=== PATIENT | male | born 1980 | race Caucasian/White ===

== ENCOUNTER → 2020-09-10 12:02 | Outpatient (BNVA) | payer OTHER, SELFPAY | PROVIDERS: Visit Provider Internal Medicine Gastroenterology | DX: Z76.89 Persons encountering health services in other specified circumstances (principal) ==

== ENCOUNTER 2020-11-30 10:15 | Outpatient (REF) | payer OTHER, SELFPAY ==
[2020-11-30 11:28] LABS: MANUAL DIFF FLAG NO
[2020-11-30 11:50] LABS: Basophils Percent Auto 0.5 % (0-2); Eosinophils Absolute Auto 0.1 X10*3/uL (0.0-0.4); Hematocrit 44.2 % (42-52); Hemoglobin 15.2 g/dl (14.0-18.0); Imm Gran Abs Auto 0.01 X10*3/uL (0.00-0.03); Imm Gran Pct Auto 0.2 % (0.0-0.4); Lymphocytes Absolute Auto 1.7 X10*3/uL (1.2-4.9); Lymphocytes Percent Auto 27.5 % (20-40); Mean Corpuscular HGB Conc 34.4 g/dl (31.0-36.0); Mean Corpuscular Volume 96.1 fL (80-98); Mean Platelet Volume 9.3 fL (9.4-12.4); Monocytes Absolute Auto 0.6 X10*3/uL (0.1-1.2); Monocytes Percent Auto 9.3 % (2-11); Neutrophils Absolute Auto 3.7 X10*3/uL (2.0-8.3); Neutrophils Percent Auto 61.5 % (45-73); Platelet Count 248 X10*3/uL (160-400); Red Cell Distribution Width 11.1 % (11.0-16.0)
[2020-11-30 12:14] LABS: Alanine Aminotransferase 20 U/L (0-40); Albumin Level 4.6 g/dL (3.5-5.0); Alkaline Phosphatase 63 U/L (39-117); Anion Gap 11 (12-20); Aspartate Amino Transferase 22 U/L (5-37); Bilirubin Total 0.6 mg/dL (0.0-1.0); Blood Urea Nitrogen 21 mg/dL (9-16); C Reactive Protein 0.12 mg/dL (< or = 0.50); Calcium 9.6 mg/dL (8.4-10.2); Carbon Dioxide 28 mmol/L (22-29); Chloride 107 mmol/L (96-108); Estimated Glomerular Filt Rate > 60; Glucose Random 93 mg/dL (60-115); Potassium 4.5 mmol/L (3.3-5.1); Sodium 141 mmol/L (135-145); Total Protein 7.9 g/dL (6.5-8.0)
[2020-11-30 12:36] LABS: Ferritin 215 ng/mL (20-250); TSH reflex Free T4 1.23 uIU/mL (0.32-4.0)
[2020-11-30 18:44] LABS: Folate 16.2 ng/mL (> or = 4.0); Vitamin B12 628 pg/mL (200-900)
[2020-12-01 11:37] LABS: IgA 505 mg/dL (47-310); IgG 1709 mg/dL (600-1640); IgM 114 mg/dL (50-300)
[2020-12-02 14:17] LABS: Zinc 72 mcg/dL (60-130)
[2020-12-04 18:23] LABS: Histamine Plasma <1.5 ng/mL (< OR = 1.8)
== END 2020-11-30 10:16 | disposition home or self-care (01) ==
LOC: HO.LAB 10:15
PROVIDERS: PCP Internal Medicine; Visit Provider Internal Medicine Gastroenterology
DX: K21.9 Gastro-esophageal reflux disease without esophagitis (principal); R10.11 Right upper quadrant pain; Z79.899 Other long term (current) drug therapy
CPT/HCPCS: 36415; 80053; 82607; 82728; 82746; 82784; 82785; 83088; 83520; 84443; 84630; 85025; 86003; 86140

== ENCOUNTER 2020-12-17 08:42 | Outpatient (REF) | payer OTHER, SELFPAY ==
--- NOTE | ~2020-12-17 | US_ITS ---
EXAMINATION: US COMPLETE ABDOMEN WITH LIVER ELASTOGRAPHY CLINICAL INFORMATION: Gastroesophageal reflux without esophagitis. COMPARISON: None. TECHNIQUE: Real-time imaging of the abdominal viscera. Noninvasive ultrasound liver fibrosis assessment is performed using Jun ElastPQ point quantification shear wave elastography (pSWE) with a C5-2 MHz transducer. Multiple elastography samples are obtained. FINDINGS: PANCREAS: Visualized portions unremarkable. ABDOMINAL AORTA: Visualized portions unremarkable. INFERIOR VENA CAVA: Visualized portions unremarkable. LIVER: Homogeneous echotexture without focal abnormality. The right lobe measures 14.2 cm in length. The left lobe measures 10.5 cm in length. Portal flow is hepatopedal Shear wave liver elastography median stiffness is 1.30 m/s (reference: normal median stiffness is 1.3 m/s or less). IQR/median stiffness to assess sampling precision is 0.14 (reference: good quality data set is IQR/median stiffness of 0.15 or less). GALLBLADDER: Unremarkable. COMMON BILE DUCT: 0.4 cm. Unremarkable. RIGHT KIDNEY: 11.9 cm. Unremarkable. LEFT KIDNEY: 11.8 cm. Unremarkable. SPLEEN: 11.0 cm. Unremarkable. FREE FLUID: None. US/US abdomen comp w elastography IMPRESSION: 1. No significant intra-abdominal abnormality. 2. Liver elastography: 1.3 m/s REFERENCE: Society of Radiologists in Ultrasound Liver Stiffness Thresholds (2020): LIVER STIFFNESS THRESHOLDS: *Liver Stiffness equal or less than 1.3 m/s: High probability of being normal. *Liver Stiffness less than 1.7 m/s: In the absence of other known clinical signs, rules out compensated advanced chronic liver disease. *Liver Stiffness 1.7-2.1 m/s: Suggestive of compensated advanced chronic liver disease but need further test for confirmation. *Liver Stiffness over 2.1 m/s: Rules in compensated advanced chronic liver disease. *Liver Stiffness over 2.4 m/s: Suggestive of clinically significant portal hypertension. QUALITY OF DATA SET: *IQR/Median value equal or less than 0.15 implies a quality data set. *IQR/Median value over 0.15 implies a poor quality data set. SIGNIFICANT CHANGE FROM PRIOR EXAM: Significant change if liver stiffness measurement is 10% or greater from prior exam. OTHER CONSIDERATIONS: The stage of liver fibrosis may be overestimated in the setting of acute hepatitis, liver inflammation, elevated liver function tests, hepatic vascular congestion, obstructive cholestasis, non-fasting state, and infiltrative diseases such as amyloidosis and lymphoma. In some patients with NAFLD, the liver stiffness thresholds for compensated advanced chronic liver disease may be lower. In causes other than viral hepatitis and NAFLD, liver stiffness thresholds are not well established.
[2020-12-17 11:06] LABS: Erythrocyte Sedimentation Rate 7 MM/HR (0-15)
[2020-12-18 14:12] LABS: IgA 525 mg/dL (47-310); IgG 1727 mg/dL (600-1640); IgM 115 mg/dL (50-300)
[2020-12-21 15:02] LABS: Prot Elec - Albumin 4.3 g/dL (3.8-4.8); Prot Elec - Alpha1 0.2 g/dL (0.2-0.3); Prot Elec - Alpha2 0.6 g/dL (0.5-0.9); Prot Elec - Beta 1 0.5 g/dL (0.4-0.6); Prot Elec - Beta 2 0.5 g/dL (0.2-0.5); Prot Elec - Gamma 1.6 g/dL (0.8-1.7); Prot Elec - Total Protein 7.7 g/dL (6.1-8.1)
[2020-12-22 11:31] LABS: PEU-Protein Creat Ratio Rand 0.034 (0.022-0.128); PEU-Rand. Prot/Creat Ratio 34 mg/g creat (22-128); PEU-Random Ur. Gamma Globulin 0 %; PEU-Random Urine A1 Globulin 0 %; PEU-Random Urine A2 Globulin 0 %; PEU-Random Urine Albumin 100 %; PEU-Random Urine Beta Globulin 0 %; PEU-Random Urine Creatinine 174 mg/dL (20-320); PEU-Random Urine Protein 6 mg/dL (5-25)
== END 2020-12-17 08:43 | disposition home or self-care (01) ==
LOC: HO.US 08:42
PROVIDERS: Visit Provider Internal Medicine Gastroenterology
DX: R10.11 Right upper quadrant pain (principal); K21.9 Gastro-esophageal reflux disease without esophagitis
CPT/HCPCS: 76705; 76981; 82570; 82784; 84155; 84156; 84165; 84166; 85652; 86003

== ENCOUNTER 2021-02-08 07:14 | Day surgery (SDC) | payer OTHER, SELFPAY ==
--- NOTE | 2021-02-04 14:08 | P.CONAN_ITS ---
Documented by User: Cassandra Church 02/04/21 14:09 HPI - Anesthesia Eval Consult details Narrative: 40yo M for Upper Endoscopy [facility] Active Problems Active Problems: All Active Problems (Updated 11/30/20 @ 10:51 by Mariely Chua MD) RUQ pain (Acute) HTN (hypertension) (Acute) Chronic GERD (Acute) Past Medical History Medical History Chronic GERD HTN (hypertension) Family History Family History Father HTN (hypertension) Diabetes Mother HTN (hypertension) Social History Social History Alcohol intake: current Alcohol intake frequency: does not drink Smoking Status: Never smoker Use of substances other than those prescribed or required for medical reasons: Yes Substance Use Frequency: Weekly Advance Directives: No Advance Directives Information Provided: Yes Meds Allergies Allergy/AdvReac Type Severity Reaction Status Date / Time NSAIDS (Non-Steroidal AdvReac Gastrointestinal Verified 02/08/21 07:50 Anti-Inflamma Upset Exam Exam Date and Time: February 04, 2021 1408 Assessment and Plan Assessment Anesthesia Assessment: Chart Reviewed Documented by User: Joan Cardoza 02/08/21 08:43 [facility] Past Medical History Medical History Chronic GERD HTN (hypertension) Family History Family History Father HTN (hypertension) Diabetes Mother HTN (hypertension) Social History Social History Alcohol intake: current Alcohol intake frequency: does not drink Smoking Status: Never smoker Use of substances other than those prescribed or required for medical reasons: Yes Substance Use Frequency: Weekly Advance Directives: No Advance Directives Information Provided: Yes Meds Allergies Allergy/AdvReac Type Severity Reaction Status Date / Time NSAIDS (Non-Steroidal AdvReac Gastrointestinal Verified 02/08/21 07:50 Anti-Inflamma Upset Exam Airway Mallampati Class: II TM Dist: >3cm Neck ROM: Full Loose/Missing/Broken Teeth: No Heart: RRR Lungs: CTA Assessment and Plan Assessment Anesthesia Assessment: Anesthesia Plan Discussed and Chart Reviewed Final Anesthetic Review NPO: Yes ASA Class: II Final Preanesthetic Review: Meds/Allgs Chart Reviewed, Consent Obtained/Reviewed and Anes Risks/Benef Reviewed Patient Risk: Low Procedure Risk: High Anesthetic Plan Anesthetic Plan: MAC: Disposition: Standard PACU
--- NOTE | 2021-02-08 07:37 | MHC.SHP ---
Pre-Procedural Eval Section B Chief Complaint: epigastric pain Relevant Family History (Specify if Yes): No Relevant Social History: None Present Medications: see Short Stay Collaborative assessment Medical History: Significant History (Chronic GERD HTN (hypertension)) History of Previous Operations: No relevant previous surgery Allergies: Allergies Allergy/AdvReac Type Severity Reaction Status Date / Time No Known Allergies Allergy Verified 11/30/20 10:26 Review of Systems Sugical H&P ROS: Negative: Constitution, Cardiovascular, Respiratory, Neurological, Psychiatric, Hem-Onc, Allergic/Immunologic, Gastrointestinal, Genitourinary, Musculoskeletal, Integumentary, Endocrine and Eyes/Ears/Nose/Throat Exam Surgical H&P Exam: Normal: HEENT, Normal: Heart, Normal: Lungs, Normal: Extremities, Normal: Abdomen, Normal: Skin and Normal: Neurological Plan Diagnosis/Plan: Unchanged I have reviewed the history and physical and performed a pertinent physical examination on my patient. No changes have occurred unless specified.
[2021-02-08] MEDS: Lactated Ringers 1,000 ML 100 ML IVCONT (07:40)
[2021-02-08 07:42] VITALS: BP 150/88; PULSE 58; RESP 16; TEMP 36.9; O2SAT 98; BMI 30.1
--- NOTE | 2021-02-08 08:42 | PM.OP ---
Brief Operative Note Date of Service: 02/08/21 Pre-op diagnosis: ruq-epigastric pain Post-op diagnosis: same Surgeon: Mariely Chua MD Estimated blood loss (mL): 0
--- NOTE | 2021-02-08 08:42 | W.PM.OPN ---
Operative Note Operative Note Date of Service: 02/08/21 Narrative: Procedure Description: EGD FLEXIBLE TRANSORAL UPPER GASTROINTESTINAL ENDOSCOPY UPPER ENDOSCOPY Consent: Indications for the procedure and potential complications of bleeding, perforation, reaction to medications and missed diagnosis were discussed with the patient and informed consent was obtained. Instrument: Olympus GIF H 190 J mid size upper endoscope Monitoring: Vital signs and clinical assessment, continuous EKG monitoring, Pulse oximetry, Carbon Dioxide monitoring and blood pressure monitoring were done throughout the procedure. Procedure: The patient was placed in the left lateral decubitis position and pre-procedure medications were administered and a bite block was placed. The endoscope was inserted into the mouth and advanced under direct vision to the third part of duodenum. A careful inspection was made as the upper endoscope was withdrawn including a retroflexed examination of the proximal stomach; Findings and interventions are described below. Findings: Larynx:normal Esophagus: GE junction at 38 cm, diaphragm hiatus at 38 cm, mild erythema and irregularity--bx taken Stomach: 3 polyps seen in distal body measured about 12 mm, could been fundic gland polyps but removed with cold snare. Biopsies were also obtained of gastric tissue. Grade 2 flap valve on retroflexed examination of the cardia. Duodenum: Normal bulb and descending duodenum, bx taken, ampulla also clearly seen and appeared normal with bile coming out. Intervention: Biopsies as noted above Impression/Findings: gastric polyps PLAN: await bx-- if neg then MRI-if neg then HIDA to r/o GB dyskinesia
[2021-02-08 09:10] VITALS: BP 99/51; PULSE 78; RESP 16; TEMP 36.3; O2SAT 94
[2021-02-08 09:31] VITALS: BP 117/81; PULSE 56; RESP 16; TEMP 36.3; O2SAT 98
== END 2021-02-08 10:24 | disposition home or self-care (01) ==
PROVIDERS: PCP Internal Medicine; Visit Provider Internal Medicine Gastroenterology
PROC: 0DJ08ZZ Inspection of Upper Intestinal Tract, Via Natural or Artificial Opening Endoscopic (ICD-10-PCS; CPT 43235; principal; 2021-02-08 08:30)
DX: R10.13 Epigastric pain (principal); R10.11 Right upper quadrant pain; K31.7 Polyp of stomach and duodenum; K21.9 Gastro-esophageal reflux disease without esophagitis; I10 Essential (primary) hypertension
CPT/HCPCS: 43239; 88305; 88342; J3010

== ENCOUNTER 2021-02-09 07:04 | Outpatient (REF) | payer OTHER, SELFPAY ==
--- NOTE | ~2021-02-09 | XR_ITS ---
EXAMINATION: PRE-MRI ORBITS CLINICAL INFORMATION: Pre-MRI screening. 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 COMPARISON: None TECHNIQUE: 3 views. FINDINGS: There is no radiopaque metallic foreign body seen in the orbits. Bilateral paranasal sinuses and mastoid air cells are well-aerated. No maxillofacial or nasal bone abnormality. XR/XR pre mri screening IMPRESSION: No radiopaque metallic foreign body seen in the orbits.
--- NOTE | ~2021-02-09 | MR_ITS ---
EXAMINATION: MR ABDOMEN WITHOUT CONTRAST CLINICAL INFORMATION: Right upper quadrant pain COMPARISON: None. TECHNIQUE: MR abdomen is performed without gadolinium contrast. MRCP sequences were also performed. FINDINGS: LUNG BASES: The visualized lung bases are unremarkable. LIVER, GALLBLADDER, AND BILIARY TREE: The liver is normal in size, smooth in contour, and normal in signal. No focal hepatic lesion or biliary ductal dilatation is present. The gallbladder is unremarkable with no evidence of gallstones, gallbladder wall thickening, or pericholecystic inflammatory changes. The common bile duct measures 0.3 cm. No common bile duct stone is seen. PANCREAS: Unremarkable. The main pancreatic duct is normal. SPLEEN: Unremarkable. ADRENAL GLANDS: Unremarkable. KIDNEYS AND URETERS: The kidneys are normal in size and shape. There are 2 small probable cysts in the upper pole the right kidney. No hydronephrosis. No perinephric stranding. GASTROINTESTINAL TRACT: No bowel obstruction. No ascites or fluid collection. ABDOMINAL WALL: No significant hernia is appreciated. LYMPH NODES: No lymphadenopathy. VASCULAR: Unremarkable. OSSEOUS STRUCTURES: Marrow signal normal. There is degenerative disc disease at L4-L5. MR/MR MRCP IMPRESSION: Probable small right renal cysts otherwise unremarkable exam.
== END 2021-02-09 07:05 | disposition home or self-care (01) ==
LOC: HO.MRI 07:04
PROVIDERS: Visit Provider Internal Medicine Gastroenterology
DX: R10.11 Right upper quadrant pain (principal)
CPT/HCPCS: 74181

== ENCOUNTER → 2021-02-25 10:26 | Outpatient (REF) | payer OTHER, SELFPAY ==
--- NOTE | ~2021-02-25 | NM_ITS ---
EXAMINATION: NM HIDA SCAN WITH CCK INDICATION: Right upper quadrant pain. COMPARISON: None TECHNIQUE: 5 mCi technetium mebrofenin and 2 mcg CCK. Imaging over the upper abdomen. FINDINGS: Uptake by the liver is within normal limits. Ductal activity by 8 minutes. Bowel activity by 19 minutes. Gallbladder activity by 12 minutes. Subsequent injection of CCK demonstrates an ejection fraction of 99%. NM/NM hepatobiliary w pharm IMPRESSION: Unremarkable study. Gallbladder ejection fraction is 99%. No scintigraphic evidence for gallbladder dyskinesis.
== END ==
LOC: HO.NUCMED 10:26
PROVIDERS: Visit Provider Internal Medicine Gastroenterology
DX: R10.11 Right upper quadrant pain (principal)
CPT/HCPCS: 78227; A9537; J2805

== ENCOUNTER 2021-03-11 10:43 | Outpatient (REF) | payer OTHER, SELFPAY ==
[2021-03-12 15:11] LABS: IgA 479 mg/dL (47-310); IgG 1577 mg/dL (600-1640); IgM 110 mg/dL (50-300)
== END 2021-03-11 10:44 | disposition home or self-care (01) ==
LOC: HO.LAB 10:43
PROVIDERS: Visit Provider Internal Medicine Gastroenterology
DX: R10.11 Right upper quadrant pain (principal); K21.9 Gastro-esophageal reflux disease without esophagitis
CPT/HCPCS: 36415; 82784

== ENCOUNTER 2021-08-12 11:32 | Day surgery (SDC) | payer OTHER, SELFPAY ==
[2021-08-05 15:28] VITALS: BMI 31.4
--- NOTE | 2021-08-11 12:47 | HO.ANESPROP2 ---
Documented by User: Cassandra Church NP 08/11/21 12:47 HPI - Anesthesia Eval Consult details Narrative: 40yo M for Colonoscopy [facility] Active Problems Active Problems: All Active Problems (Updated 08/05/21 @ 15:31 by Leonie Win, TESFAYE) RUQ pain (Acute) Chronic GERD (Acute) Past Medical History Medical History Chronic GERD COVID-19 vaccine series completed Generalized anxiety disorder HTN (hypertension) Family History Family History Father HTN (hypertension) Diabetes Mother HTN (hypertension) Surgical History Surgical History History of esophagogastroduodenoscopy (EGD) Hx of colonoscopy Social History Social History Are you a primary primary care sales representative to a significant other at home: No Do you presently have visiting nurse or other home services: No Alcohol intake: current Alcohol intake frequency: does not drink Patient Tobacco Use Status: Former Tobacco user Quit Date: 2016 Tobacco use type: Cigarette Use of substances other than those prescribed or required for medical reasons: Yes Substance Use Frequency: Weekly Have you been hit, kicked, punched, or otherwise hurt by someone within the past year? If so, by whom?: No Are you DNR?: No Advance Directives: No Advance Directives Information Provided: No Advance Directives on File: No Recently lost weight without trying: No Eating poorly because of decreased appetite: No Nutrition Risks: No Nutritional Risk Meds Allergies Allergy/AdvReac Type Severity Reaction Status Date / Time NSAIDS (Non-Steroidal AdvReac Gastrointestinal Verified 08/05/21 15:27 Anti-Inflamma Upset Home Medications Medication Instructions Recorded Confirmed Last Taken Type lisinopril 10 mg tablet 1 tab PO DAILY 08/05/21 08/05/21 08/12/21 History propranolol 10 mg tablet 1 tab PO BID 08/05/21 08/05/21 08/12/21 History Exam Exam Date and Time: August 11, 2021 1247 Height,Weight and Vital Signs: Height 5 ft 10 in Weight 99.337 kg Assessment and Plan Assessment Anesthesia Assessment: Chart Reviewed Documented by User: Brenda Sanz MD 08/12/21 12:26 [facility] Past Medical History Medical History Chronic GERD COVID-19 vaccine series completed Generalized anxiety disorder HTN (hypertension) Functional capacity: independent ambulation Family History Family History Father HTN (hypertension) Diabetes Mother HTN (hypertension) Family history of problems with anesthesia: No Surgical History Surgical History History of esophagogastroduodenoscopy (EGD) Hx of colonoscopy History of Problems with Anesthesia: No Social History Social History Are you a primary primary care sales representative to a significant other at home: No Do you presently have visiting nurse or other home services: No Alcohol intake: current Alcohol intake frequency: does not drink Patient Tobacco Use Status: Former Tobacco user Quit Date: 2016 Tobacco use type: Cigarette Use of substances other than those prescribed or required for medical reasons: Yes Substance Use Frequency: Weekly Have you been hit, kicked, punched, or otherwise hurt by someone within the past year? If so, by whom?: No Are you DNR?: No Advance Directives: No Advance Directives Information Provided: No Advance Directives on File: No Recently lost weight without trying: No Eating poorly because of decreased appetite: No Nutrition Risks: No Nutritional Risk Meds Allergies Allergy/AdvReac Type Severity Reaction Status Date / Time NSAIDS (Non-Steroidal AdvReac Gastrointestinal Verified 08/05/21 15:27 Anti-Inflamma Upset Home Medications Medication Instructions Recorded Confirmed Last Taken Type lisinopril 10 mg tablet 1 tab PO DAILY 08/05/21 08/05/21 08/12/21 History propranolol 10 mg tablet 1 tab PO BID 08/05/21 08/05/21 08/12/21 History Exam Airway Mallampati Class: II TM Dist: >3cm Neck ROM: Full Heart: RRR Lungs: CTA Assessment and Plan Final Anesthetic Review Family History of Problems with Anesthesia: No History of Problems with Anesthesia: No
[2021-08-12 11:41] VITALS: BP 150/92; PULSE 70; RESP 16; TEMP 36.8; O2SAT 100
[2021-08-12] MEDS: Lactated Ringers 1,000 ML 100 ML IVCONT (11:48)
--- NOTE | 2021-08-12 12:16 | MHC.SHP ---
Pre-Procedural Eval Section A Date of Service: 08/12/21 Section B Chief Complaint: change in bowel habit Details of Present Illness: abnormal shaped stool which is new for him, colonoscopy for investigation. No bleeding or nausea, vomiting but describes satiety. Present Medications: see Short Stay Collaborative assessment Medical History: Significant History (Chronic GERD COVID-19 vaccine series completed Generalized anxiety disorder HTN (hypertension)) Allergies: Allergies Allergy/AdvReac Type Severity Reaction Status Date / Time NSAIDS (Non-Steroidal AdvReac Gastrointestinal Verified 08/05/21 15:27 Anti-Inflamma Upset Review of Systems Sugical H&P ROS: Negative: Constitution, Cardiovascular, Respiratory, Neurological, Psychiatric, Hem-Onc, Allergic/Immunologic, Gastrointestinal, Genitourinary, Musculoskeletal, Integumentary, Endocrine and Eyes/Ears/Nose/Throat Exam Surgical H&P Exam: Normal: HEENT, Normal: Heart, Normal: Lungs, Normal: Extremities, Normal: Abdomen, Normal: Skin and Normal: Neurological Plan Diagnosis/Plan: Unchanged I have reviewed the history and physical and performed a pertinent physical examination on my patient. No changes have occurred unless specified. colonoscopy to investigate abnormal stool consistency.
--- NOTE | 2021-08-12 12:23 | PM.OP ---
Brief Operative Note Date of Service: 08/12/21 Pre-op diagnosis: abn stool habit Post-op diagnosis: same Procedure: see op note Surgeon: Mariely Chua MD Anesthesia: MAC Was an Sports Medicine [facility] used for this Procedure?: No Estimated blood loss (mL): 0 Condition: stable Disposition: PACU
--- NOTE | 2021-08-12 12:24 | P.OP_ITS ---
Operative Note Operative Note Date of Service: 08/12/21 Narrative: Operative Information Procedure Description: Colonoscopy COLONOSCOPY Instrument: Olympus variable stiffness pediatric scope 190L Colonoscopy Monitoring: Vital signs and clinical assessment, continuous EKG monitoring, Pulse oximetry, Carbon Dioxide monitoring and blood pressure monitoring were done throughout the procedure. Colon withdrawal time was 11 minutes. Procedure: The patient was placed in the left lateral decubitis position and pre-procedure medications were administered. After a digital rectal examination of the ano-rectum, the video colonoscope was inserted into the rectum and advanced through the colon to the cecum/TI. The colonoscope was slowly withdrawn in a retrograde panoramic fashion and the colon mucosa was carefully examined including a retroflexed view of the rectum. Findings and interventions are described below. Procedure Difficulty: easy Findings: Terminal Ileum-normal Cecum: 10-12 mm sessile polyp removed with cold snare Ascending Colon: normal Transverse Colon -normal Descending Colon:normal Sigmoid Colon: several small diverticula seen with some mucosal hypertrophy Rectum: Retroflexion with small to medium sized internal hemorrhoids, grade II Anorectum - internal hemorrhoids seen at anal verge Colon preparation: [employer] Bowel Preparation Scale Right colon; 2 Transverse colon: 3 Left colon; 3 (0 = Unprepared colon segment with mucosa not seen due to solid stool that cannot be cleared. 1 = Portion of mucosa of the colon segment seen, but other areas of the colon segment not well seen due to staining, residual stool and/or opaque liquid. 2 = Minor amount of residual staining, small fragments of stool and/or opaque liquid, but mucosa of colon segment seen well. 3 = Entire mucosa of colon segment seen well with no residual staining, small fragments of stool or opaque liquid) Impression and Post Procedure Diagnosis: polyp internal hemorrhoids diverticular disease Plan: High fiber diet leaflet Avoid straining at stool, epsom salts and sitz bath, anusol supps or cream Repeat Colonoscopy in 5 years due to polyp or earlier if clinically indicated altered bowel habit maybe due to diverticulosis or hemorrhoids Above findings were reviewed with the patient and relevant handouts were provided if indicated.
[2021-08-12 12:57] VITALS: BP 103/63; PULSE 75; RESP 16; TEMP 36.2; O2SAT 99
[2021-08-12 13:10] VITALS: BP 127/71; PULSE 65; RESP 18; TEMP 37; O2SAT 97
== END 2021-08-12 13:32 | disposition home or self-care (01) ==
PROVIDERS: Visit Provider Internal Medicine Gastroenterology
PROC: 0DJD8ZZ Inspection of Lower Intestinal Tract, Via Natural or Artificial Opening Endoscopic (ICD-10-PCS; CPT 45378; principal; 2021-08-12 15:00)
DX: R19.4 Change in bowel habit (principal); D12.0 Benign neoplasm of cecum; K57.30 Diverticulosis of large intestine without perforation or abscess without bleeding; K64.1 Second degree hemorrhoids; K21.9 Gastro-esophageal reflux disease without esophagitis; I10 Essential (primary) hypertension; F41.1 Generalized anxiety disorder; Z79.899 Other long term (current) drug therapy; Z88.8 Allergy status to other drugs, medicaments and biological substances
CPT/HCPCS: 45385; 88305

== ENCOUNTER → 2021-11-19 08:35 | Outpatient (BNVA) | payer OTHER, SELFPAY | PROVIDERS: Visit Provider Internal Medicine Gastroenterology ==

== ENCOUNTER 2024-09-20 09:10 | Outpatient (AMB) | payer OTHER, SELFPAY ==
--- NOTE | 2024-09-20 09:15 | MHC.OFFVIS ---
Vital Signs 09/20/24 09:17 Height 5 ft 10 in Weight 233 lb 11.04 oz BMI 33.5 BP 160/91 H Blood Pressure Location Lt brachial Position Sitting Pulse 64 Intake Visit Reasons: Medication Follow Up Intake Note: Matt presents in the office as a follow up. CC: He states that he is here today to discuss coming off Omeprazole. 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 Allergies NSAIDS (Non-Steroidal Anti-Inflamma Adverse Reaction (Verified 09/20/24 09:17) Gastrointestinal Upset HPI HPI Medication Follow Up: Details: 43 yr old m w/ HTN being called for f/u for various GI sx RECAP HE hds been having pain in the 'guts' acid reflux is usu well controlled, on omeprazole 20 mg for 4 yrs or so he has back pain as well mild tenderness in the epigastrium no nausea or vomiting, occ queasiness in the throat no hemorrhoidal issues, no anal fissure taking probiotic and Mag supplement I changed him to pantoprazole he was unable to take pantoprazole due to reaction with red face EGD 2016 and colonoscopy 2017 at [facility] adenomas removed, mild esophagitis had hida and us in [facility] for Gb eval apparently nml EGD 01/2021- fairly unremarkable colonoscopy 08/19--hemorrhoids, diverticulosis, polyp-adenoma MRCP: 01/2021--nml HIDA: nml, EF: 99% INTERIM: he has gained a lot of weight he has tenderness epigastrium but no pain as such no issues with food no nausea or vomiting bowels are normal he has occ hemorrhoidal bleeding he has not needed bentyl he is happy with low dose omeprazole-take daily mild snoring at night he can have bad taste in mouth like his food at night partial droop right eye EXAM: GENERAL: The patient is well developed and nontoxic. VITAL SIGNS:see workflow HEENT: Nonicteric sclerae, PERRLA, EOMI. Oropharynx clear. Moist mucous membranes. Conjunctivae appear well perfused. No thyroid mass. CHEST: Chest wall is nontender. HEART: Regular rate and rhythm without murmurs. LUNGS: Clear to auscultation bilaterally. ABDOMEN: Soft, positive bowel sounds, nontender, no organomegaly.no flank tenderness SKIN: No rash, no excessive bruising, petechiae, or purpura. NEUROLOGIC: Cranial nerves II-XII intact without motor/sensory deficit. partial ptosis right eye Psych: normal affect Impression: 1/ possible regurgitation and reflux at night 2/ partial ptosis right eye PLAN: 1/ check labs today inc nutrients 2/ EGD with [facility] 3/ CXR--he will check with when ptosis came on and look at old photos --might need brain imaging 4/ snoring at night, might do sleep study if EGd, [facility] neg PFSH Medical History COVID-19 vaccine series completed Generalized anxiety disorder HTN (hypertension) Chronic GERD Surgical History Hx of colonoscopy History of esophagogastroduodenoscopy (EGD) Family History Father HTN (hypertension) Diabetes Mother HTN (hypertension) Social History Are you a primary health care manager to a significant other at home: No Do you presently have visiting nurse or other home services: No Alcohol intake: current Alcohol intake frequency: does not drink Patient Tobacco Use Status: Former Tobacco user Tobacco use type: Cigarette Physical Exam Vital Signs: Last Vital Signs Pulse 64 09/20/24 09:17 BP 160/91 H 09/20/24 09:17 BMI result Body Mass Index 33.5 Assessment & Plan Assessment & Plan (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 Category: Medical Plan: see above (2) RUQ pain: Code(s): R10.11 - Right upper quadrant pain Category: Medical Plan: above (3) Malabsorption: Code(s): K90.9 - Intestinal malabsorption, unspecified Category: Medical Plan: see above Orders: Orders Zinc Today K90.9 - Intestinal malabsorption, unspecified, R10.11 - Right upper quadrant pain Vitamin K1 Today K90.9 - Intestinal malabsorption, unspecified, R10.11 - Right upper quadrant pain Vitamin E Today K90.9 - Intestinal malabsorption, unspecified, R10.11 - Right upper quadrant pain Vitamin D 25-OH Total Today K90.9 - Intestinal malabsorption, unspecified, R10.11 - Right upper quadrant pain Vitamin C Today K90.9 - Intestinal malabsorption, unspecified, R10.11 - Right upper quadrant pain Vitamin B6 Today K90.9 - Intestinal malabsorption, unspecified, R10.11 - Right upper quadrant pain Vitamin B3 (Niacin) Today K90.9 - Intestinal malabsorption, unspecified, R10.11 - Right upper quadrant pain Vitamin B12 and Folate Today K90.9 - Intestinal malabsorption, unspecified, R10.11 - Right upper quadrant pain Vitamin B1 Today K90.9 - Intestinal malabsorption, unspecified, R10.11 - Right upper quadrant pain Vitamin A Today K90.9 - Intestinal malabsorption, unspecified, R10.11 - Right upper quadrant pain Complete Blood Count Auto Diff Today K90.9 - Intestinal malabsorption, unspecified, R10.11 - Right upper quadrant pain XR chest 2V Today G90.2 - Noah's syndrome Vitamin B5 (Pantothenic Acid) Today K90.9 - Intestinal malabsorption, unspecified, R10.11 - Right upper quadrant pain Ferritin Today K90.9 - Intestinal malabsorption, unspecified, R10.11 - Right upper quadrant pain Magnesium Today K90.9 - Intestinal malabsorption, unspecified, R10.11 - Right upper quadrant pain Comprehensive Met. 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
[2024-09-20 09:17] VITALS: BP 160/91; PULSE 64; BMI 33.5
== END 2024-09-20 09:45 | disposition home or self-care (01) ==
PROVIDERS: PCP Nurse Practitioner Adult Health; Visit Provider Internal Medicine Gastroenterology
DX: G90.2 Horner's syndrome (principal); R10.11 Right upper quadrant pain; K90.9 Intestinal malabsorption, unspecified
CPT/HCPCS: 99214

== ENCOUNTER 2024-09-20 09:10 | Outpatient (REF) | payer OTHER, SELFPAY ==
--- NOTE | ~2024-09-20 | XR_ITS ---
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 COMPARISON: None available TECHNIQUE: 2 views of the chest were obtained. FINDINGS: No significant abnormality is noted involving the heart, lungs, mediastinum, bony thorax or soft tissues. XR/XR chest 2V IMPRESSION: Unremarkable examination. Electronically signed by: Iban Duque MD 11/12/2024 04:34 PM [facility]
[2024-09-20 10:20] LABS: MANUAL DIFF FLAG NO
[2024-09-20 10:25] LABS: Basophils Percent Auto 0.6 % (0-2); Eosinophils Absolute Auto 0.1 X10*3/uL (0.0-0.4); Eosinophils Percent Auto 1.2 % (0-4); Hematocrit 43.7 % (42.0-52.0); Hemoglobin 15.5 g/dl (14.0-18.0); Imm Gran Abs Auto 0.02 X10*3/uL (0.00-0.03); Imm Gran Pct Auto 0.3 % (0.0-0.4); Lymphocytes Absolute Auto 1.9 X10*3/uL (1.2-4.9); Mean Corpuscular HGB Conc 35.5 g/dl (31.0-36.0); Mean Corpuscular Hemoglobin 33.3 pg (27.0-33.0); Mean Corpuscular Volume 93.8 fL (80.0-98.0); Mean Platelet Volume 8.8 fL (9.4-12.4); Monocytes Absolute Auto 0.6 X10*3/uL (0.1-1.2); Monocytes Percent Auto 8.5 % (2-11); Neutrophils Percent Auto 60.4 % (45-73); Platelet Count 222 X10*3/uL (160-400); Red Blood Count 4.66 X10*6/uL (4.60-5.80); Red Cell Distribution Width 11.3 % (11.0-16.0); White Blood Count 6.7 X10*3/uL (4.8-10.8)
[2024-09-20 11:17] LABS: Alanine Aminotransferase 27 U/L (0-40); Albumin Level 4.2 g/dL (3.5-5.0); Alkaline Phosphatase 66 U/L (39-117); Anion Gap 12 (12-20); Aspartate Amino Transferase 27 U/L (5-37); Bilirubin Total 0.6 mg/dL (0.0-1.0); Blood Urea Nitrogen 15 mg/dL (9-16); Calcium 9.5 mg/dL (8.4-10.2); Carbon Dioxide 27 mmol/L (22-29); Chloride 105 mmol/L (96-108); Estimated Glomerular Filt Rate > 60; Glucose Random 108 mg/dL (60-115); Magnesium 2.1 mg/dL (1.6-2.6); Potassium 4.5 mmol/L (3.3-5.1); Sodium 139 mmol/L (135-145); Total Protein 7.8 g/dL (6.5-8.0)
[2024-09-20 11:27] LABS: Ferritin 248 ng/mL (20-250); Vitamin D 25-OH Total 30.6 ng/mL (>30)
[2024-09-20 11:36] LABS: Folate 10.2 ng/mL (> or = 4.0); Vitamin B12 525 pg/mL (200-900)
[2024-09-24 21:48] LABS: Zinc 77 mcg/dL (60-130)
[2024-09-25 20:19] LABS: Vitamin K1 670 pg/mL (130-1500)
[2024-09-26 06:23] LABS: Vitamin A 53 mcg/dL (38-98)
[2024-09-27 02:38] LABS: Alpha-Tocopherol 19.5 mg/L (5.7-19.9); Beta-Gamma Tocopherol 1.8 mg/L (<=4.3)
[2024-09-27 12:42] LABS: Vitamin C 0.4 mg/dL (0.2-2.1)
[2024-09-27 16:22] LABS: Vitamin B1 11 nmol/L (8-30)
[2024-09-28 16:44] LABS: Nicotinamide <20 ng/mL (see note); Vit B3 - Nicotinic Acid <20 ng/mL (see note); Vitamin B5 (Pantothenic Acid) 41 ng/mL (<275); Vitamin B6 6.4 ng/mL (2.1-21.7)
== END 2024-09-20 09:11 | disposition home or self-care (01) ==
LOC: HO.XRAY 09:10
PROVIDERS: PCP Nurse Practitioner Adult Health; Visit Provider Internal Medicine Gastroenterology
DX: R10.11 Right upper quadrant pain (principal); K90.9 Intestinal malabsorption, unspecified; K75.81 Nonalcoholic steatohepatitis (NASH); G90.2 Horner's syndrome; I10 Essential (primary) hypertension; Z79.899 Other long term (current) drug therapy
CPT/HCPCS: 36415; 71046; 80053; 82180; 82306; 82607; 82728; 82746; 83735; 84207; 84425; 84446; 84590; 84591; 84597; 84630; 85025; 99212

== ENCOUNTER 2025-04-21 10:55 | Outpatient (AMB) | payer OTHER, SELFPAY ==
--- NOTE | 2025-04-21 10:56 | MHC.OFFVIS ---
Vital Signs 04/21/25 11:03 Height 5 ft 10 in Weight 234 lb BMI 33.6 BP 132/84 Blood Pressure Location Rt brachial Position Sitting Pulse 68 Pulse Source Pulse Oximeter Pulse Oximetry (%) 100 Oxygen Delivery Method Room Air Intake Visit Reasons: 4 month follow up Intake Note: Est pt for mgmt of chronic abd pain + GERD. CC: C.O. chronic epigastric and lower quadrant (worse on RLQ) pain. Pt also reports some recent constipation without any evidence of hemorrhoids. Pt would like to rediscuss hiatal hernia status. Surveillance Sensor Officer Required: No Accompanied by: Self / Same As Patient Allergies NSAIDS (Non-Steroidal Anti-Inflamma Adverse Reaction (Verified 04/21/25 10:57) Gastrointestinal Upset HPI HPI 4 month follow up: Details: 43 yr old m w/ HTN being called for f/u for various GI sx RECAP HE hds been having pain in the 'guts' acid reflux is usu well controlled, on omeprazole 20 mg for 4 yrs or so he has back pain as well mild tenderness in the epigastrium no nausea or vomiting, occ queasiness in the throat no hemorrhoidal issues, no anal fissure taking probiotic and Mag supplement I changed him to pantoprazole he was unable to take pantoprazole due to reaction with red face EGD 2016 and colonoscopy 2018 at [facility] adenomas removed, mild esophagitis had hida and us in [facility] for Gb eval apparently nml EGD 01/2021- fairly unremarkable colonoscopy 08/19--hemorrhoids, diverticulosis, polyp-adenoma MRCP: 01/2021--nml HIDA: nml, EF: 99% INTERIM: he has mild KIANA, on cpap now he rarely has regurgitation he is still taking omeprazole 20 mg and he is happy with that dose no nausea or vomiting bowels are normal he has mild discomfort every few weeks in epigastric area--worse with red sauce and stress EXAM: GENERAL: The patient is well developed and nontoxic. VITAL SIGNS:see workflow HEENT: Nonicteric sclerae, PERRLA, EOMI. Oropharynx clear. Moist mucous membranes. Conjunctivae appear well perfused. No thyroid mass. CHEST: Chest wall is nontender. HEART: Regular rate and rhythm without murmurs. LUNGS: Clear to auscultation bilaterally. ABDOMEN: Soft, positive bowel sounds, nontender, no organomegaly.no flank tenderness SKIN: No rash, no excessive bruising, petechiae, or purpura. NEUROLOGIC: Cranial nerves II-XII intact without motor/sensory deficit. partial ptosis right eye Psych: normal affect Impression: 1/ occ regurgitation, with epigastric pain -overall pretty good PLAN: 1/ EGD with possible mccray as planned 2/ get US check liver and GB< last LFT were nml [facility] Medical History COVID-19 vaccine series completed Generalized anxiety disorder HTN (hypertension) Chronic GERD Surgical History Hx of colonoscopy History of esophagogastroduodenoscopy (EGD) Family History Father HTN (hypertension) Diabetes Mother HTN (hypertension) Social History Are you a primary critical care paramedic to a significant other at home: No Do you presently have visiting nurse or other home services: No Alcohol intake: current Alcohol intake frequency: does not drink Patient Tobacco Use Status: Former Tobacco user Tobacco use type: Cigarette Physical Exam Vital Signs: BMI result Body Mass Index 33.6 Assessment & Plan Assessment & Plan (1) RUQ pain: Code(s): R10.11 - Right upper quadrant pain Category: Medical Plan: as above Orders: Orders US abdomen complete Today R10.11 - Right upper quadrant pain Coding Level of Care Code Est Pt Level 3 (33694) Diagnoses RUQ pain R10.11
[2025-04-21 11:03] VITALS: BP 132/84; PULSE 68; O2SAT 100; BMI 33.6
--- OUTSIDE RECORDS SUMMARY | 2025-04-21 12:23 | XMS_ITS | Clinical Summary ---
Author Organization [employer] Address [address] [facility] [place] [place] [address] Care Team Providers Care Butadiene Converter Utility Operator Name Role Phone No, Pcp ON AIR TALENT Primary Care Provider Unavailabl e Allergies Active Allergy Reactions Criticality Noted Date Comments Nsaids (Non-Steroidal Anti-Inflammatory Drug) 04/03/2023 Other reaction(s): ulcers Medications CPAP MACHINE AUTO TITRATING, MINCLIN, See Instructions, # 1 units, Refills 0, Tot. Refills 0, Maintenance, PLEASE SET PRESSURE AT 7 CM, 09/18/18 9:29:00 EST, Compound 09/18/2018 Active lisinopriL (PRINIVIL) 20 MG tablet TAKE 1 TABLET BY MOUTH DAILY 01/18/2023 Active omeprazole (PriLOSEC) 20 MG capsule TAKE 1 CAPSULE BY MOUTH DAILY 02/13/2023 Active Social History Tobacco Use Types Packs/Day Years Used Date Smoking Tobacco: Never Smokeless Tobacco: Never Tobacco Cessation:Counseling Given: Not Answered Sex and Gender Information Value Date Recorded Sex Assigned at Not on file Legal Sex Male 9:49 AM EDT Gender Identity Not on file Sexual Orientation Not on file Last Filed Vital Signs Vital Sign Reading Time Taken Comments Blood Pressure 142/89 04/03/2023 8:49 AM EDT Pulse 61 04/03/2023 8:30 AM EDT Temperature 36.5 C (97.7 F) 04/03/2023 8:30 AM EDT Respiratory Rate 18 04/03/2023 8:30 AM EDT Oxygen Saturation 100% 04/03/2023 8:30 AM EDT Inhaled Oxygen Concentration - - Weight - - Height - - Body Mass Index - - Plan of Treatment Health Maintenance Due Date Last Done Comments Colorectal Cancer: COLONOSCO PY Screening every 10 yrs (or Modifier) 1979 Depression: Screening Annual ly using PHQ-2/9 in Adults 18 yrs or above (or HM Modifier)([facility]) 12/29/1997 Hepatitis C Virus Infection in Adolescents and Adults: Screening (or Modifier) ([facility]) 12/29/1997 SDOH Screening Reminder: Annually for all adults ([facility] ) 12/29/1997 Tobacco Smoking Cessation: i n Adults excluding Women: Behavioral and Pharmacotherapy Interventions ([facility]) 12/29/1997 COVID-19 Vaccine Screening: Initial Series and Booster Status ([facility]) (2023- season) 2024 03/30/2021, 03/02/2021 Colorectal Cancer Screening 45 -75 Yrs (or HM Modifier) 12/29/2024 Colorectal Cancer: FLEXIBLE SIGMOIDOSCOPY Screening every 5 yrs 12/29/2024 Colorectal Cancer: Fecal Immunochemical Test (FIT) Annually [facility] 12/29/2024 Colorectal Cancer: High-sensitivity gFOBT Screening Annually [facility] 12/29/2024 Colorectal Cancer: Stool Cologuard Screening every 3 yrs 12/29/2024 Colorectal Cancer:CT Colonography Screening every 5 yrs 12/29/2024 Flu Vaccination: Yearly for ages 18mos through 64 years (or Modifier)([facility]) 05/30/2025 DTaP/Tdap/Td Vaccines ([facility]) (2 - Td or Tdap) 08/26/2026 08/26/2016 Zoster/Shingles Vaccine Seri es Screening: Adults aged 18+ yrs (or HM Modifiers)([facility] ) (1 of 2) 12/29/2029 Pneumococcal Vaccination Screening: Pts 0-19 & 19-49 yrs of age ([facility] ) Aged Out No longer eligible based on patient's age to complete this topic Medical Devices Not on file Insurance Care Teams Butadiene Converter Utility Operator Relationship Specialty Start Date End Date No, Pcp, ON AIR TALENT N/A Do not use PCP - General 06/03/17
== END 2025-04-21 11:48 | disposition home or self-care (01) ==
LOC: HO.HGI 10:55
PROVIDERS: PCP Nurse Practitioner Adult Health; Visit Provider Internal Medicine Gastroenterology
DX: R10.11 Right upper quadrant pain (principal)
CPT/HCPCS: 99213

== ENCOUNTER → 2025-04-21 10:55 | Outpatient (BNVA) | payer OTHER, SELFPAY | PROVIDERS: PCP Nurse Practitioner Adult Health; Visit Provider Internal Medicine Gastroenterology | DX: R10.11 Right upper quadrant pain (principal); K21.9 Gastro-esophageal reflux disease without esophagitis; F41.1 Generalized anxiety disorder | CPT/HCPCS: 99212 ==

== ENCOUNTER 2025-05-20 07:50 | Day surgery (SDC) | payer OTHER, SELFPAY ==
--- OUTSIDE RECORDS SUMMARY | 2025-04-22 14:56 | XMS_ITS | Clinical Summary ---
Author Organization [employer] Address [address] [facility] [place] [address] Care Team Providers Care Cereal Popper Name Role Phone No, Pcp BANBURY MILL OPERATOR Primary Care Provider Unavailabl e Allergies Active [...] Adults excluding Women: Behavioral and Pharmacotherapy Interventions ([facility]) 12/29/1997 COVID-19 Vaccine Screening: Initial Series and Booster Status ([facility]) (2023- season) 2024 03/30/2021, 03/02/2021 Colorectal Cancer Screening 45 -75 Yrs (or HM Modifier) 12/29/2024 Colorectal Cancer: FLEXIBLE SIGMOIDOSCOPY Screening every 5 yrs 12/29/2024 Colorectal Cancer: Fecal Immunochemical Test (FIT) Annually [facility] 12/29/2024 Colorectal Cancer: High-sensitivity gFOBT Screening Annually [facility] 12/29/2024 Colorectal Cancer: Stool Cologuard Screening every 3 yrs 12/29/2024 Colorectal Cancer:CT Colonography Screening every 5 yrs 12/29/2024 Flu Vaccination: Yearly for ages 18mos through 64 years (or Modifier)([facility]) 05/30/2025 DTaP/Tdap/Td Vaccines ([facility]) (2 - Td or Tdap) 08/26/2026 08/26/2016 Zoster/Shingles Vaccine Seri es Screening: Adults aged 18+ yrs (or HM Modifiers)([facility] ) (1 of 2) 12/29/2029 Pneumococcal Vaccination Screening: Pts 0-19 & 19-49 yrs of age ([facility] ) Aged Out No longer eligible based on patient's age to complete this topic Medical Devices Not on file Insurance Care Teams Cereal Popper Relationship Specialty Start Date End Date No, Pcp, BANBURY MILL OPERATOR N/A Do not use PCP - General 06/03/17
[2025-05-20 08:05] VITALS: BMI 33.1
[2025-05-20 08:12] VITALS: BP 156/86; PULSE 59; RESP 16; TEMP 36.3; O2SAT 99
[2025-05-20] MEDS: Lactated Ringers 1,000 ML 100 ML IVCONT (08:22)
--- NOTE | 2025-05-20 08:51 | P.HPSUR_ITS ---
Pre-Procedural Eval Section A - 24 Hr Update-Section A only Date of Service: 05/20/25 Section B - Complete if H&P > 30 days Chief Complaint: Unspecified abdominal pain,gerd Relevant Family History (Specify if Yes): No Relevant Social History: None Present Medications: see Short Stay Collaborative assessment Medical History: Significant History (COVID-19 vaccine series completed Generalized anxiety disorder HTN (hypertension) Chronic GERD) History of Previous Operations: Relevant previous surgery/procedure and date(s) ( Hx of colonoscopy History of esophagogastroduodenoscopy (EGD)) Allergies: Allergies Allergy/AdvReac Type Severity Reaction Status Date / Time NSAIDS (Non-Steroidal AdvReac Gastrointestinal Verified 04/21/25 10:57 Anti-Inflamma Upset Review of Systems Sugical H&P ROS: Negative: Constitution, Cardiovascular, Respiratory, Neurolo gical, Psychiatric, Hem-Onc, Allergic/Immunologic, Gastrointestinal, Genitourinary, Musculoskeletal, Integumentary, Endocrine and Eyes/Ears/Nose/Throat Exam Surgical H&P Exam: Normal: HEENT, Normal: Heart, Normal: Lungs, Normal: Extremities, Normal: Abdomen, Normal: Skin and Normal: Neurological Plan Diagnosis/Plan: Unchanged I have reviewed the history and physical and performed a pertinent physical examination on my patient. No changes have occurred unless specified. Time Spent With Patient Time: Total time managing care of this patient today ____ minutes.
--- NOTE | 2025-05-20 10:28 | W.PM.OPN ---
Operative Note Operative Note Date of Service: 05/20/25 Narrative: Procedure Description: EGD Indication: GERD Anesthesia: MAC FLEXIBLE TRANSORAL UPPER GASTROINTESTINAL ENDOSCOPY UPPER ENDOSCOPY Consent: Indications for the procedure and potential complications of bleeding, perforation, reaction to medications and missed diagnosis were discussed with the patient and informed consent was obtained. Instrument: Olympus GIF H 190 J mid size upper endoscope Monitoring: Vital signs and clinical assessment, continuous EKG monitoring, Pulse oximetry, Carbon Dioxide monitoring and blood pressure monitoring were done throughout the procedure. Procedure: The patient was placed in the left lateral decubitis position and pre-procedure medications were administered and a bite block was placed. The endoscope was inserted into the mouth and advanced under direct vision to the third part of duodenum. A careful inspection was made as the upper endoscope was withdrawn including a retroflexed examination of the proximal stomach; Findings and interventions are described below. Findings: Larynx:normal Esophagus: GE junction at 40 cm, diaphragm hiatus at 40 cm, mild esophagitis, bx taken from GEJ and distal, proximal esophagus, Horan deployed at 34 cm Stomach: mild erythema . Biopsies were obtained. Grade 2 flap valve on retroflexed examination of the cardia. Duodenum: Normal bulb and descending duodenum, bx taken Intervention: Biopsies as noted above, Impression/Findings: mild esophagitis PLAN: Initial pH 6.2, duration of monitoring about 96 hrs--he is doing study on PPI GERD precautions
[2025-05-20 10:40] VITALS: BP 126/80; PULSE 70; RESP 18; TEMP 36.3; O2SAT 94
[2025-05-20 10:55] VITALS: BP 122/75; PULSE 70; RESP 17; TEMP 36.3; O2SAT 99
== END 2025-05-20 11:12 | disposition home or self-care (01) ==
PROVIDERS: PCP Nurse Practitioner Adult Health; Visit Provider Internal Medicine Gastroenterology
PROC: 0DJ08ZZ Inspection of Upper Intestinal Tract, Via Natural or Artificial Opening Endoscopic (ICD-10-PCS; CPT 43235; principal; 2025-05-20 10:10)
DX: K21.9 Gastro-esophageal reflux disease without esophagitis (principal); R10.11 Right upper quadrant pain; K20.80 Other esophagitis without bleeding; K44.9 Diaphragmatic hernia without obstruction or gangrene; I10 Essential (primary) hypertension; G47.33 Obstructive sleep apnea (adult) (pediatric); Z99.89 Dependence on other enabling machines and devices; Z79.899 Other long term (current) drug therapy; Z88.6 Allergy status to analgesic agent; Z87.891 Personal history of nicotine dependence
CPT/HCPCS: 43239; 88305; 88313; 88342; J2003; J2704; J3010

== ENCOUNTER → 2025-05-20 07:50 | Outpatient (BNV) | payer OTHER, SELFPAY | PROVIDERS: PCP Nurse Practitioner Adult Health; Visit Provider Internal Medicine Gastroenterology | DX: K21.00 Gastro-esophageal reflux disease with esophagitis, without bleeding (principal) | CPT/HCPCS: 43239 ==

== ENCOUNTER 2025-05-23 09:35 | Outpatient (REF) | payer OTHER, SELFPAY ==
--- NOTE | 2025-05-19 14:54 | HO.ANESPROP2 ---
Documented by User: Demetrice Roberts NP 05/19/25 14:54 HPI - Anesthesia Eval Consult details Narrative: 44 yr old male for upper endoscopy. GERD: on PPI KIANA on CPAP PMFSH Active Problems Active Problems: All Active Problems Malabsorption (Acute) Noah syndrome (Acute) RUQ pain (Acute) Chronic GERD (Acute) Past Medical History Medical History Sleep apnea COVID-19 vaccine series completed Generalized anxiety disorder HTN (hypertension) Chronic GERD Family History Family History Father HTN (hypertension) Diabetes Mother HTN (hypertension) Family history of problems with anesthesia: No Surgical History Surgical History Hx of colonoscopy History of esophagogastroduodenoscopy (EGD) History of Problems with Anesthesia: No Social History Social History Are you a primary animal care assistant to a significant other at home: No Do you presently have visiting nurse or other home services: No Alcohol intake: current Alcohol intake frequency: does not drink Patient Tobacco Use Status: Former Tobacco user Tobacco use type: Cigarette Use of substances other than those prescribed or required for medical reasons: Yes Substance Use Type Other:: gummie Are you DNR?: No Advance Directives: No Advance Directives Information Provided: Yes Poor oral hygiene: No Meds Allergies Allergy/AdvReac Type Severity Reaction Status Date / Time NSAIDS (Non-Steroidal AdvReac Gastrointestinal Verified 04/21/25 10:57 Anti-Inflamma Upset Home Medications ?Medication ?Instructions ?Recorded ?Confirmed ?Last Taken ?Type amlodipine 5 mg tablet 5 mg PO DAILY 04/21/25 05/20/25 05/20/25 History lisinopril 20 mg tablet 30 mg PO DAILY 04/21/25 05/20/25 Unknown History magnesium 500 mg tablet 500 mg PO DAILY 05/20/25 05/20/25 Unknown History Assessment and Plan Final Anesthetic Review Family History of Problems with Anesthesia: No History of Problems with Anesthesia: No Documented by User: Melva Montanez MD 05/20/25 08:35 PMFSH Past Medical History Medical History Sleep apnea COVID-19 vaccine series completed Generalized anxiety disorder HTN (hypertension) Chronic GERD Family History Family History Father HTN (hypertension) Diabetes Mother HTN (hypertension) Surgical History Surgical History Hx of colonoscopy History of esophagogastroduodenoscopy (EGD) Social History Social History Are you a primary animal care assistant to a significant other at home: No Do you presently have visiting nurse or other home services: No Alcohol intake: current Alcohol intake frequency: does not drink Patient Tobacco Use Status: Former Tobacco user Tobacco use type: Cigarette Use of substances other than those prescribed or required for medical reasons: Yes Substance Use Type Other:: gummie Are you DNR?: No Advance Directives: No Advance Directives Information Provided: Yes Poor oral hygiene: No Meds Allergies Allergy/AdvReac Type Severity Reaction Status Date / Time NSAIDS (Non-Steroidal AdvReac Gastrointestinal Verified 04/21/25 10:57 Anti-Inflamma Upset Home Medications ?Medication ?Instructions ?Recorded ?Confirmed ?Last Taken ?Type amlodipine 5 mg tablet 5 mg PO DAILY 04/21/25 05/20/25 05/20/25 History lisinopril 20 mg tablet 30 mg PO DAILY 04/21/25 05/20/25 Unknown History magnesium 500 mg tablet 500 mg PO DAILY 05/20/25 05/20/25 Unknown History Exam Airway Mallampati Class: II TM Dist: >3cm Heart: rrr Lungs: cta Assessment and Plan Assessment Anesthesia Assessment: Anesthesia Plan Discussed and Chart Reviewed Final Anesthetic Review NPO: Yes ASA Class: III Final Preanesthetic Review: No Changes in Pt Med Stat, Meds/Allgs Chart Reviewed, Consent Obtained/Reviewed and Anes Risks/Benef Reviewed Patient Risk: Intermediate Procedure Risk: Low Anesthetic Plan Anesthetic Plan: MAC:, Regional Block and Agree w/ Assess. and Plan Disposition: Standard PACU
--- NOTE | ~2025-05-23 | US_ITS ---
CLINICAL HISTORY: R10.11 - Right upper quadrant pain --- Additional Notes or Special Instructions: epigastric pain US abdomen complete Comparison: None provided Findings: The visualized pancreas is normal. The aorta and inferior vena cava are normal caliber. The appearance of the liver suggests fatty infiltration. There is no intrahepatic bile duct dilatation. The common duct is 4.0 mm in diameter. The gallbladder is normal. There is no sonographic Vu sign. The main portal vein is antegrade. The right kidney is 11.6 cm in length. The left kidney is 12.5 cm in length. The spleen is normal. No ascites. IMPRESSION: 1. Hepatic steatosis This document has been electronically signed by: Fawad Bocanegra MD on 05/24/2025 10:08:49
--- OUTSIDE RECORDS SUMMARY | 2025-05-23 09:48 | XMS_ITS | Clinical Summary ---
Author Organization [employer] Address [address] [facility] [place] [address] Care Team Providers Care Data Governance Analyst Name Role Phone No, Pcp PAINTING TECHNICIAN Primary Care Provider Unavailabl e Allergies Active [...] Adults excluding Women: Behavioral and Pharmacotherapy Interventions ([facility]) 12/29/1997 COVID-19 Vaccine Screening: Initial Series and Booster Status ([facility]) (2023- season) 2024 03/30/2021, 03/02/2021 Colorectal Cancer Screening 45 -75 Yrs (or HM Modifier) 12/29/2024 Colorectal Cancer: FLEXIBLE SIGMOIDOSCOPY Screening every 5 yrs 12/29/2024 Colorectal Cancer: Fecal Immunochemical Test (FIT) Annually [facility] 12/29/2024 Colorectal Cancer: High-sensitivity gFOBT Screening Annually [facility] 12/29/2024 Colorectal Cancer: Stool Cologuard Screening every 3 yrs 12/29/2024 Colorectal Cancer:CT Colonography Screening every 5 yrs 12/29/2024 Flu Vaccination: Yearly for ages 18mos through 64 years (or Modifier)([facility]) 05/30/2025 DTaP/Tdap/Td Vaccines ([facility]) (2 - Td or Tdap) 08/26/2026 08/26/2016 Zoster/Shingles Vaccine Seri es Screening: Adults aged 18+ yrs (or HM Modifiers)([facility] ) (1 of 2) 12/29/2029 Pneumococcal Vaccination Screening: Pts 0-19 & 19-49 yrs of age ([facility] ) Aged Out No longer eligible based on patient's age to complete this topic Medical Devices Not on file Insurance Care Teams Data Governance Analyst Relationship Specialty Start Date End Date No, Pcp, PAINTING TECHNICIAN N/A Do not use PCP - General 06/03/17
== END 2025-05-23 09:36 | disposition home or self-care (01) ==
LOC: HO.US 09:35
PROVIDERS: PCP Nurse Practitioner Adult Health; Visit Provider Internal Medicine Gastroenterology
DX: R10.11 Right upper quadrant pain (principal)
CPT/HCPCS: 76700

== ENCOUNTER → 2025-05-23 09:37 | Outpatient (BNV) | payer OTHER, SELFPAY | PROVIDERS: PCP Nurse Practitioner Adult Health; Visit Provider Specialist | DX: R10.11 Right upper quadrant pain (principal) | CPT/HCPCS: 76700 ==